=== PATIENT | female | born 1970 | race Caucasian/White ===

== ENCOUNTER 2024-09-24 08:53 | Outpatient (CLI) | payer BC | END 2024-09-24 08:54 | disposition home or self-care (01) | LOC: CSHSLEEP 08:53 | PROVIDERS: ATTEND Physician Assistant | DX: G47.33 Obstructive sleep apnea (adult) (pediatric) (principal); R53.83 Other fatigue; R06.83 Snoring; E66.9 Obesity, unspecified; Z68.43 Body mass index [BMI] 50.0-59.9, adult; F41.9 Anxiety disorder, unspecified; F31.9 Bipolar disorder, unspecified; I10 Essential (primary) hypertension | CPT/HCPCS: 95811 ==